=== PATIENT | female | born 1990 | race Caucasian/White ===

== ENCOUNTER 2020-11-30 13:54 | Emergency (ER) | payer OTHER, SELFPAY ==
[2020-11-30 14:01] VITALS: BP 132/80; PULSE 99; RESP 16; TEMP 36.6; O2SAT 100
--- NOTE | 2020-11-30 14:11 | ED.SKABFB ---
HPI - Skin/Abscess/Foreign Bdy General Chief complaint: Skin/Abscess/Foreign Body Stated complaint: suture removal Time Seen by Provider: 11/30/20 14:11 Source: patient Mode of arrival: ambulatory Limitations: no limitations History of Present Illness HPI narrative: Nivia Veras is a 30 yo female with no PMH who comes to express care for suture removal and yeast infection from the abx prescribed. Patient had the sutures in her right hand at the base of her index finger for almost 14 days. She reports that her physician said that not to take them out until 14 days and to have an Steri-Strip Related Data Home Medications Medication Instructions Recorded Confirmed amoxicillin-pot clavulanate tablet 11/30/20 Allergies Allergy/AdvReac Type Severity Reaction Status Date / Time No Known Allergies Allergy Verified 11/30/20 14:05 Review of Systems Review of Systems: CONSTITUTIONAL: Denies fever, chills, sweats. EYES: Denies visual changes, redness, discharge. ENT: Denies rhinorrhea, congestion, sore throat, otalgia. CARDIOVASCULAR: Denies chest pain, palpitations, edema. RESPIRATORY: Denies dyspnea, wheezing, cough GASTROINTESTINAL: Denies abdominal pain, nausea, vomiting, diarrhea. GENITOURINARY: Denies dysuria, hematuria, abnormal discharge SKIN: Denies rash or itching. Well approximated small superficial laceration to the base of the index finger on the palmar side NEUROLOGIC: Denies numbness, or focal weakness. PSYCHIATRIC: Denies anxiety or depression. [facility] Past Medical History Medical History No acute medical problems Family History Family History Father Hypertension Mother Hypertension Social History Social History (Updated 11/30/20 @ 14:27 by Judy Fang CNP) Smoking status: Never smoker Alcohol intake: current Comments At time of signature, I agree with nursing past medical, surgical, social and family history. There is no relevant family history pertinent to the presenting complaint. Exam Narrative: GENERAL: This is a well-nourished, well-developed patient, in mild distress. HEAD: normocephalic, atraumatic. EYES: Sclera clear/white. Vision is grossly intact. EARS: External ears normal, . Hearing grossly intact. NOSE: External nose normal without nasal discharge, nares without redness, no rhinorrhea. THROAT: Mucous membranes moist, NECK: Neck supple, CARDIOVASCULAR: Regular rate and rhythm without murmurs, gallops, or rubs. RESPIRATORY: Clear to auscultation. Breath sounds equal bilaterally. No wheezes, rales, or rhonchi. GASTROINTESTINAL: Abdomen soft, SKIN: warm, intact with no suspicious lesions or rash, good texture and turgor. Well approximated healed laceration which required 4 sutures at the base of the right index finger on the palmar side sutures will be removed NEURO: awake, alert, and oriented to person, place and time. There were no obvious focal neurologic abnormalities. Steady gait EXTREMITIES: Normal range of motion. BACK: Nontender without deformity Course Course Emergency Course: Patient comes to [facility] for suture removal and also for a dose of Diflucan because she thinks she is getting a yeast infection Long discussion with her about the pros and cons of Diflucan versus 3-day Monistat that she can buy [id number] Sutures removed from hand Diflucan sent to pharmacy Vital Signs Vital signs: Vital Signs Temperature 97.8 F 11/30/20 14:01 Pulse Rate 99 11/30/20 14:01 Respiratory Rate 16 11/30/20 14:01 Blood Pressure 132/80 11/30/20 14:01 Pulse Oximetry 100 11/30/20 14:01 Temperature 97.8 F 11/30/20 14:01 Pulse Rate 99 11/30/20 14:01 Respiratory Rate 16 11/30/20 14:01 Blood Pressure 132/80 11/30/20 14:01 Pulse Oximetry 100 11/30/20 14:01 Procedures Other Procedure Procedure 1: Other P
== END 2020-11-30 14:38 | disposition home or self-care (01) ==
PROVIDERS: Emergency Provider Nurse Practitioner
DX: Z48.02 Encounter for removal of sutures (principal)
CPT/HCPCS: 99211; G0463